=== PATIENT | female | born 1980 | race Caucasian/White ===

== ENCOUNTER 2018-02-03 10:47 | Emergency (ER) | payer BC ==
[~2018-02-03 10:47] MED LIST: IBUP600 PO; OXYC1SOL5 PO; PERI8.6T PO; PRENTAB72 PO
--- NOTE | 2018-02-03 11:56 | PD ---
HPI Chief Complaint Joel Dia contractions Date Seen: February 03, 2018 Time Seen: 11:48 Travel History International Travel<30 Days: No Contact w/Intl Traveler<30Days: No Known Affected Area: No History of Present Illness HPI 37-year-old white female [address] Mccall for care and presents complaining of [place] Dia contractions, denies bleeding or leakage of fluid. heart tones are reactive for 24 weeks and there are no contractions noted on the monitor. 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 Alcohol Use: No Tobacco Use: No Substance Abuse: No Allergies-Medications (Allergen,Severity, Reaction): Coded Allergies: No Known Allergies (Verified , 07/14/12) Home Meds Active Scripts Oxycodone W/ Acetaminophen (Oxycodone/Acetaminophen 5-325 mg/5Ml) 1 Tab Tab, 1 TAB PO Q4H Y for PAIN SCALE 1 TO 4, #30 TAB 0 Refills Prov:Sergio Mccall MD 11/22/14 Sennosides-Docusate Sodium (Sary-Colace 8.6-50 mg) 1 Tab Tab, 2 TAB PO Q12H Y for CONSTIPATION, #20 TAB 0 Refills Prov:Alyssa Quinonez 11/21/14 Ibuprofen (Motrin 600 Mg Tab) 600 Mg Tab, 600 MG PO Q6H Y for CRAMPING, #30 TAB 0 Refills Prov:Alyssa Quinonez 11/21/14 Reported Medications Vit W/ Ferrous Fumara () Tab, 1 TAB PO DAILY 07/14/12 Review of Systems General / Constitutional: No: Fever, Weight Gain, Chills, Other Eyes: No: Diploplia, Blurred Vision, Visual changes, Pain, Photophobia HENT: No: Headaches, Vertigo, Lightheadedness Cardiovascular: No: Irregular Rhythm, Chest Pain or Discomfort, Palpitations, Tachycardia, Syncope, Varicosities, Edema, Cyanosis Respiratory: No: Cough, Short of Breath, Other Gastrointestinal: Abdominal Pain, No: Nausea, Vomiting, Diarrhea Genitourinary: No: Decreased Urinary Output, Oliguria Musculoskeletal: No: Limited ROM, Weakness, Cramping, Edema, Pain Skin: No Rash, No Itching, No Dryness, No Lumps, No Change in Pigmentation, No Change in Nails, No Alopecia, No Lesions Neurologic: No: Weakness, Dizziness, Syncope, Focal Abnormalities, Coordination Problem, Headache, Slurred Speech, Seizures Psychiatric: No: Depression, Suicidal Ideations, Homicidal Ideation Endocrine: No: Heat Intolerance, Cold Intolerance, Polydipsia, Polyuria, Other Physical Exam Narrative GENERAL: Well-nourished, well-developed patient. SKIN: Warm and dry. HEAD: Normocephalic and atraumatic. EYES: No scleral icterus. No injection or drainage. ENT: No nasal drainage noted. Mucous membranes pink. Airway patent. NECK: Supple, trachea midline. No JVD. CARDIOVASCULAR: Regular rate and rhythm without murmurs, gallops, or rubs. RESPIRATORY: Breath sounds equal bilaterally. No accessory muscle use. BREASTS: Bilateral exam showed no masses , no retractions, no nipple discharge. ABDOMEN/GI: Abdomen soft, non-tender, bowel sounds present, no rebound, no guarding Gravid to [-24] weeks size Fundal Height: [-24] GENITOURINARY: External Genitalia: intact and normal in appearance BUS glands: [-] Cervix: [-post] Dilatation: [0-] Effacement: [0-] Station: [-3] Membranes: [intact ] Uterine Contractions: [none seen-] FHT's: Category: [1-] Baseline: [133-] Reactive: [R-] Variability: [mod-] Decels: [-none] EXTREMITIES: No cyanosis or edema. BACK: Nontender without obvious deformity. No CVA tenderness. NEUROLOGICAL: Awake and alert. Motor and sensory grossly within normal limits. Five out of 5 muscle strength in all muscle groups. Normal speech. Data Data Labs UA on OB ED is negative MDM Interpretation(s) 37-year-old white female at 24 weeks PCS who presents complaining of [place] Dia contractions. Denies bleeding or leakage of fluid. heart tones within normal limits and no contractions seen. Cervix is closed thick and high Plan Plan to discharge home to bedrest, Tylenol, p.o. hydration, heating pad or hot bath for symptom relief follow-up with Dr. Mccall for further issues Diagnosis Diagnosis: Primary Impression: [place] Dia contractions Additional Impression: 24 weeks gestation of Disposition: 01 DISCHARGE HOME Condition: Stable Departure Forms: Tests/Procedures, Work Release Enter return to work date: February 05, 2018 Special Instructions: Please allow patient to be off for 48 hours for bedrest due to premature uterine contractions Dario Goldsmith II, MD February 03, 2018 11:56
== END 2018-02-03 12:10 | disposition home or self-care (01) ==
LOC: HOBED 10:47
DX: O47.02 False labor before 37 completed weeks of gestation, second trimester (principal); Z3A.24 24 weeks gestation of pregnancy
CPT/HCPCS: 99284

== ENCOUNTER 2018-05-05 16:15 | Inpatient (IN) ==
--- NOTE | 2018-05-05 16:56 | ED ---
History of Present Illness Primary Care Physician: Tasia Matthew MD History of Present Illness: cc: contractions 37-year-old 002, IUP at 37.5 care complicated by history of previous delivery, desires permanent surgical sterilization, advanced maternal age The patient presents complaining of painful contractions that started at noon today. She reports they have increased in frequency and intensity to now every 3-6 minutes. There have been no alleviating for factors or attempted treatments. She denies any leaking of fluid or vaginal bleeding. She reports good movement. 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 Denies history of STDs or abnormal Paps PMH: Denies PSH: Tonsillectomy, delivery FH: Asthma, diabetes, CAD, [place], CVA, [place] Meds: As per EMR Allergy: NKDA SH: Denies drugs, alcohol, tobacco Review of Systems All other systems reviewed negative except as stated in HPI Medications and Allergies Allergies Allergy/AdvReac Type Severity Reaction Status Date / Time No Known Allergies Allergy unknown Uncoded 05/05/18 16:50 Home Medications Medication Instructions Recorded Confirmed Type [id number] acid 1 tab PO DAILY 05/05/18 05/05/18 History [PreNata] Exam Vital signs: Vital Signs 05/05/18 16:32 05/05/18 16:33 Temperature 98.0 F Pulse Rate 99 H Respiratory Rate 20 Blood Pressure 130/88 Narrative: GENERAL: Well-nourished, well-developed patient. SKIN: Warm and dry. HEAD: Normocephalic and atraumatic. EYES: No scleral icterus. No injection or drainage. ENT: No nasal drainage noted. Mucous membranes pink. Airway patent. NECK: Supple, trachea midline. No JVD. CARDIOVASCULAR: Regular rate and rhythm without murmurs, gallops, or rubs. RESPIRATORY: Breath sounds equal bilaterally. No accessory muscle use. BREASTS: Deferred ABDOMEN/GI: Abdomen soft, non-tender, bowel sounds present, no rebound, no guarding Gravid GENITOURINARY: External Genitalia: intact and normal in appearance, normal EGBUS, no cervical or vaginal masses, grossly normal rugae, physiologic discharge, SVE 1/ 50/-2. No significant cervical change with prolonged observation. FHT's: heart tones are in the 120s with moderate long-term variability, good accelerations, no decelerations noted. This is a reactive NST and category 1 heart rate tracing EXTREMITIES: No cyanosis or edema. BACK: Nontender without obvious deformity. NEUROLOGICAL/psychiatric: Awake and alert. Oriented 3. Motor and sensory grossly within normal limits. Five out of 5 muscle strength in all muscle groups. Normal speech. Normal memory/affect. Grossly normal range of motion. Results - Labs CBC & Chem 7: 05/05/18 19:25 Assessment and Plan - Plan Assessment/plan: 1. IUP at 37.5 2. Contractions at term: no evidence of active labor, patient may be in latent labor as contractions have increased in intensity and frequency and not decreased with IV hydration. There is no evidence of active labor. Discussed with Dr. Fung who spoke with patient and offered discharge home vs overnight observation. The patient will be admitted to Dr. Fung for overnight observation. 3. History of previous delivery: Patient desires a repeat delivery and is scheduled for next week, will undergo repeat if enters active labor 4. Patient desires permanent surgical sterilization 5. Advanced maternal age 6. well-being: Reassuring testing with reactive NST and category 1 heart rate tracing Discharge Plan - Discharge Condition Condition: Stable - Physicians Team Primary Care Provider: Tasia Matthew Attending Provider: Sergio Mccall - Rxs /Orders / Referrals /Forms Prescriptions: No Action [id number] acid [PreNata] 29 mg iron- 1 mg Tablet,Chewable 1 tab PO DAILY Referrals: Tasia Matthew MD [Primary Care Provider] - See Instructions
--- NOTE | 2018-05-05 22:15 | P.OBGPN ---
Update note 37-year-old , IUP at 37.5 by 9w US ([place]OV[place] 05/21/18) who presented this afternoon with complaints of contractions. She is received her liter of fluids , her cervix was 1 cm / 70% / -2 on arrival, has had no change since that time on repeat check. However has continued to contract painfully. care complicated by history of previous delivery, desires permanent surgical sterilization, advanced maternal age. plan was for repeat next week : /-3. FHTs: 130-140, moderate variability, no decles, acerations present [place]: contractions q 3-5 min A/P 1 IUP: may be off monitor and nursing to assess patient and placed back on monitor if allen painfully. 2. Contractions/late labor?: Patient has continued to contract regularly, no cervical loom changer the span of approximately 6 hours, most recent check by myself showed no change from previous. Discussed options with patient of observation in the hospital with pain control, and/or tocolysis for symptomatic improvement, versus discharge home with precautions the patient may return if worsening or persistent pain. Patient desires to stay, will place in observation, Tylenol as needed for pain. Will reassess tomorrow morning if making change at that time or before then we will proceed with . Allow to eat now n.p.o. at midnight. - CBC, UA pending. 3. History of : Desires repeat, originally scheduled for next week, desires sterilization as well. 4. AMA: AU WNL, NIPS Neg, XY.
[2018-05-05 23:06] LABS: Baso # (Auto) 0.1 th/mm3 (0.0-0.2); Baso % (Auto) 0.4 % (0.0-2.0); Eos # (Auto) 0.1 th/mm3 (0.0-0.4); Eos % (Auto) 0.4 % (0.0-4.0); Hematocrit 40.3 % (35.0-46.0); Hemoglobin 13.7 gm/dL (11.6-15.3); Lymph % (Auto) 14.5 % (9.0-44.0); Mean Corpuscular Hemoglobin 30.9 pg (27.0-34.0); Mean Corpuscular Volume 90.8 fL (80.0-100.0); Mean Platelet Volume 9.8 fL (7.0-11.0); Mono # (Auto) 0.9 th/mm3 (0.0-0.9); Mono % (Auto) 6.4 % (0.0-8.0); Neut # (Auto) 10.8 th/mm3 (1.8-7.7); Neut % (Auto) 78.3 % (16.0-70.0); Platelet Count 242 th/mm3 (150-450); Red Blood Count 4.43 mil/mm3 (4.00-5.30); Red Cell Distribution Width 12.9 % (11.6-17.2); White Blood Count 13.8 th/mm3 (4.0-11.0)
[2018-05-05 23:52] LABS: Amphetamine Urine With Conf Neg (Neg); Benzodiazepine Urine With Conf Neg (Neg)
[2018-05-05 23:53] LABS: Bacteria,Urine Rare /hpf; Bilirubin,Urine Negative (Negative); Clarity,Urine Clear (Clear); Color,Urine Straw (Yellw/Straw); Glucose,Urine (UA) Negative (Negative); Leukocyte Esterase,Urine Negative (Negative); Mucus,Urine Few /lpf (Occasional); Nitrite,Urine Negative (Negative); Specific Gravity,Urine 1.004 (1.002-1.035); Squamous Epithelial Cell,Urine 2 /hpf (0-5)
[2018-05-06] MEDS: Acetaminophen 325 MG Tablet PO PRN ×3 (04:46→20:47)
[2018-05-06] MEDS ORDERED: Sod Chloride 0.9% Inj 1,000 ML IV.CONT PRN (08:21)
[2018-05-06] MEDS ORDERED: Sodium Chlor 0.9% Inj 500 ML IV.SIG PRN (08:21)
[2018-05-06] MEDS ORDERED: Oxytocin 30 Units/500ml Premix 30 UNITS/500 ML BAG IV.SIG ONE ×2 (08:21→08:42)
[2018-05-06] MEDS ORDERED: Morphine Sulfate PF Inj 5 MG/10 ML Ampul ONE (08:21)
[2018-05-06] MEDS ORDERED: Naloxone Inj 0.4 MG/ML Vial IV.PUSH PRN ×2 (08:21→09:02)
[2018-05-06] MEDS ORDERED: fentaNYL Citrate Inj 100 MCG/2 ML Ampul IV.PUSH PRN ×2 (08:21)
[2018-05-06] MEDS ORDERED: Citric Acid/Sodium Citrate Liq 30 ML UDC PO SCH ×2 (08:30)
--- NOTE | 2018-05-06 08:37 | P.HPOB ---
History of Present Illness Primary Care Physician: Tasia Matthew MD History of Present Illness: cc: contractions 37-year-old 002, IUP at 37.5 care complicated by history of previous delivery, desires permanent surgical sterilization, advanced maternal age The patient presents complaining of painful contractions that started at noon today. She reports they have increased in frequency and intensity to now every 3-6 minutes. There have been no alleviating for factors or attempted treatments. She denies any leaking of fluid or vaginal bleeding. She reports good movement. 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 Denies history of STDs or abnormal Paps PMH: Denies PSH: Tonsillectomy, delivery FH: Asthma, diabetes, CAD, [place], CVA, [place] Meds: As per EMR Allergy: NKDA SH: Denies drugs, alcohol, tobacco - Inpatient Certification I certify that the inpatient services were ordered in accordance with Medicare regulations governing the order. This includes certification that hospital inpatient services are reasonable and necessary and in the case of services not specified as inpatient-only under 42 CFR 419.22(n), that they are appropriately provided as inpatient services in accordance to with the 2-midnight benchmark under 43 CFR 412.3(e) Estimated Total Length of Stay (Days): 3 Plans for Post Hospital Care: Home Review of Systems Gastrointestinal: Reports abdominal pain (uterine contractions 3-6 minutes) PMFSH - Tobacco History Second Hand Smoke Exposure: No Tobacco Use In Past 30 Days: No Smoking Status: Never smoker - Alcohol History How Often Do You Have a Drink Containing Alcohol: Never - Substance Use History Substance History: No History of Abuse - Travel History History of Recent Travel: No Recent Travel in the [place] Within the Last 8 Weeks: No Recent Travel Out of the Country Within the Last 8 Weeks: No Medications and Allergies Active Medications: Active Medications Acetaminophen (Tylenol) 650 mg PO Q4H PRN PRN Reason: PAIN SCALE 1 TO 5 Last Admin: 05/06/18 04:46 Dose: 650 mg Citric Acid/Sodium Citrate (Sodium Citrate/Citric Acid Liq) 30 ml PO METAL HANDLER NAVEED Stop: 05/10/18 08:29 Citric Acid/Sodium Citrate (Sodium Citrate/Citric Acid Liq) 30 ml PO METAL HANDLER NAVEED Stop: 05/10/18 08:29 Fentanyl Citrate (Fentanyl Inj) 50 mcg IV.PUSH Q1H PRN PRN Reason: Pain Scale 3 - 5 Fentanyl Citrate (Fentanyl Inj) 100 mcg IV.PUSH Q1H PRN PRN Reason: PAIN SCALE 6 TO 10 Lactated Ringer's (Lr 1000 Ml Inj) 1,000 mls @ 999 mls/hr IV.CONT .Q1H1M [facility] Last Admin: 05/06/18 04:49 Dose: Not Given Cefazolin Sodium 1,000 mg/ (Sodium Chloride) 100 mls @ 100 mls/hr IV.SIG METAL HANDLER [facility] Stop: 05/10/18 08:59 Lactated Ringer's (Lr 1000 Ml Inj) 1,000 mls @ 2,000 mls/hr IV.SIG .Q30M ONE Stop: 05/06/18 08:50 Lactated Ringer's (Lr 1000 Ml Inj) 1,000 mls @ 150 mls/hr IV.CONT .Q6H40M [facility] Lactated Ringer's (Lr 1000 Ml Inj) 1,000 mls @ 125 mls/hr IV.CONT .Q8H [facility] Lactated Ringer's (Lr 1000 Ml Inj) 1,000 mls @ 3,000 mls/hr IV.SIG UNSCH PRN PRN Reason: compromise or epidural Sodium Chloride (Ns Inj) 1,000 mls @ 100 mls/hr IV.CONT .Q10H PRN PRN Reason: SEE LABEL COMMENTS Oxytocin (Pitocin 30 Units/Ns 500 Ml Premix) 30 units in 500 mls @ 999 mls/hr IV.SIG BOLUS ONE Stop: 05/06/18 08:51 Sodium Chloride (Ns Inj) 500 mls @ 1,000 mls/hr IV.SIG UNSCH PRN PRN Reason: SEE LABEL COMMENTS Lidocaine HCl (Xylocaine 1% Inj) 0.1 ml I-DERMAL PRN PRN PRN Reason: For IV start Stop: 05/09/18 08:20 Lidocaine HCl (Xylocaine 1% Inj) 10 ml INFILTRATN PRN PRN PRN Reason: For episiotomy repair Stop: 05/08/18 08:20 Mineral Oil (Muri-Lube Oil) 10 ml TOPICAL PRN PRN PRN Reason: PRN perineal massage Naloxone HCl (Narcan Inj) 0.1 mg IV.PUSH Q2M PRN PRN Reason: for opiate reversal Sodium Chloride (Ns Flush) 2 ml IV.FLUSH BID NAVEED Sodium Chloride (Ns Flush) 2 ml IV.FLUSH PRN PRN PRN Reason: FLUSH AFTER USING IV ACCESS Allergies Allergy/AdvReac Type Severity Reaction Status Date / Time No Known Allergies Allergy unknown Uncoded 05/05/18 16:50 Home Medications Medication Instructions Recorded Confirmed Type [id number] acid 1 tab PO DAILY 05/05/18 05/05/18 History [PreNata] Exam Vital signs: Vital Signs 05/05/18 16:32 05/05/18 16:33 05/05/18 19:15 Temperature 98.0 F Pulse Rate 99 H Respiratory Rate 20 18 Blood Pressure 130/88 05/05/18 21:00 05/05/18 22:30 05/06/18 04:00 Temperature Pulse Rate Respiratory Rate 18 18 18 Blood Pressure 05/06/18 05:00 05/06/18 06:52 05/06/18 07:32 Temperature 97.9 F Pulse Rate 78 Respiratory Rate 18 18 18 Blood Pressure 122/74 Intake & Output 05/05/18 05/06/18 05/06/18 18:59 06:59 18:59 Weight 63.957 kg - Constitutional no acute distress - Routine HEENT Exam Head: Present: normocephalic Eye: Present: EOMI, PERRL, normal accommodation - Routine Neck Exam Present: supple, full ROM. Absent: lymphadenopathy - Routine Chest/Breast/Axilla Exam Chest wall: Absent: tenderness - Routine Respiratory Exam Absent: accessory muscle use, decreased breath sounds, rales - Routine Cardiovascular Exam Present: RRR. Absent: murmur - Routine Abdominal Exam Present: soft, normoactive bowel sounds. Absent: tenderness - Routine Exam External: Present: normal urethra appearance. Absent: erythema, swelling, tenderness Groin: Absent: tenderness Perineum Description: Intact Comments: Cervix 50/1/-2/vertex - Routine Extremities Exam Present: full ROM, pulses intact. Absent: cyanosis, clubbing, edema, tenderness , joint swelling - Routine Skin Exam Present: intact. Absent: cyanosis, erythema - Routine Neurological Exam Present: alert, oriented X3, normal reflexes Results - Labs CBC & Chem 7: 05/05/18 19:25 Labs: Laboratory Results - last 24 hr 05/05/18 05/05/18 05/05/18 16:30 16:30 19:25 WBC 13.8 H RBC 4.43 Hgb 13.7 Hct 40.3 MCV 90.8 MCH 30.9 MCHC 34.0 RDW 12.9 Plt Count 242 MPV 9.8 Neut % (Auto) 78.3 H Lymph % (Auto) 14.5 [place] % (Auto) 6.4 Eos % (Auto) 0.4 Baso % (Auto) 0.4 Neut # (Auto) 10.8 H Lymph # (Auto) 2.0 [place] # (Auto) 0.9 Eos # (Auto) 0.1 Baso # (Auto) 0.1 WBC Differential . Differential Comment Auto diff final Urine Color Straw Urine Clarity Clear Urine pH 6.0 Ur Specific [place] 1.004 Urine Protein Negative Urine Glucose (UA) Negative Urine Ketones Negative Urine Occult Blood Negative Urine Nitrate Negative Urine Bilirubin Negative Urine Urobilinogen Less than 2 Ur Leukocyte Esterase Negative Urine RBC Less than 1 Urine WBC Less than 1 Ur Squamous Epith Cells 2 Urine Bacteria Rare H Urine Mucus Few H Micro UA Comment Culture not ind Urine Culture Comments Culture not ind Urine Opiates Screen Neg Ur Barbiturates Screen Neg Ur Amphetamine Screen Neg U Benzodiazepines Scrn Neg Urine Cocaine Screen Neg U Cannabinoids Screen Neg Blood Type Blood Type Recheck Antibody Screen 05/05/18 19:25 WBC RBC Hgb Hct MCV MCH MCHC RDW Plt Count MPV Neut % (Auto) Lymph % (Auto) [place] % (Auto) Eos % (Auto) Baso % (Auto) Neut # (Auto) Lymph # (Auto) [place] # (Auto) Eos # (Auto) Baso # (Auto) WBC Differential Differential Comment Urine Color Urine Clarity Urine pH Ur Specific [place] Urine Protein Urine Glucose (UA) Urine Ketones Urine Occult Blood Urine Nitrate Urine Bilirubin Urine Urobilinogen Ur Leukocyte Esterase Urine RBC Urine WBC Ur Squamous Epith Cells Urine Bacteria Urine Mucus Micro UA Comment Urine Culture Comments Urine Opiates Screen Ur Barbiturates Screen Ur Amphetamine Screen U Benzodiazepines Scrn Urine Cocaine Screen U Cannabinoids Screen Blood Type A Positive Blood Type Recheck Not needed Antibody Screen Negative Caprini VTE Risk Assessment Caprini VTE Risk Assessment: No/Low Risk (score <= 1) Caprini Risk Assessment Model: Point Value = 1 Point Value = 2 Point Value = 3 Point Value = 5 Age 41-60 Minor surgery BMI > 25 kg/m2 Swollen legs Varicose veins or History of unexplained or recurrent spontaneous Oral contraceptives or hormone replacement Sepsis (< 1 month) Serious lung disease, including pneumonia (< 1 month) Abnormal pulmonary function Acute myocardial infarction Congestive heart failure (< 1 month) History of inflammatory bowel disease Medical patient at bed rest Age 61-74 Arthroscopic surgery Major open surgery (> 45 min) Laparoscopic surgery (> 45 min) Malignancy Confined to bed (> 72 hours) Immobilizing plaster cast Central venous access Age >= 75 History of VTE Family history of VTE Factor V Leiden Prothrombin [id number] Lupus anticoagulant Anticardiolipin antibodies Elevated serum homocysteine Heparin-induced thrombocytopenia Other congenital or acquired thrombophilia Stroke (< 1 month) Elective arthroplasty Hip, pelvis, or leg fracture Acute spinal cord injury (< 1 month) Prophylaxis Regimen: Total Risk Factor Score Risk Level Prophylaxis Regimen 0-1 Low Early ambulation 2 Moderate Order ONE of the following: *Sequential Compression Device (SCD) *Heparin 5000 units SQ BID 3-4 Higher Order ONE of the following medications: *Heparin 5000 units SQ TID *Enoxaparin/Lovenox 40 mg SQ daily (WT < 150 kg, CrCl > 30 mL/min) *Enoxaparin/Lovenox 30 mg SQ daily (WT < 150 kg, CrCl > 10-29 mL/min) *Enoxaparin/Lovenox 30 mg SQ BID (WT < 150 kg, CrCl > 30 mL/min) AND/OR *Sequential Compression Device (SCD) 5 or more Highest Order ONE of the following medications: *Heparin 5000 units SQ TID (Preferred with Epidurals) *Enoxaparin/Lovenox 40 mg SQ daily (WT < 150 kg, CrCl > 30 mL/min) *Enoxaparin/Lovenox 30 mg SQ daily (WT < 150 kg, CrCl > 10-29 mL/min) *Enoxaparin/Lovenox 30 mg SQ BID (WT < 150 kg, CrCl > 30 mL/min) AND *Sequential Compression Device (SCD) Assessment and Plan - Plan Assessment/plan: 1. IUP at 37.5 2. Contractions at term: no evidence of active labor, patient may be in latent labor as contractions have increased in intensity and frequency and not decreased with IV hydration. There is no evidence of active labor. Discussed with Dr. Fung who spoke with patient and offered discharge home vs overnight observation. The patient will be admitted to Dr. Fung for overnight observation. 3. History of previous delivery: Patient desires a repeat delivery and is scheduled for next week, will undergo repeat if enters active labor 4. Patient desires permanent surgical sterilization 5. Advanced maternal age 6. well-being: Reassuring testing with reactive NST and category 1 heart rate tracing Update, 05/06/2018: 37 6/7 weeks continued regular UCs,Painful ,Plan repeat cd with BTL, Stable. Routine pre-op orders,Ancef
--- NOTE | 2018-05-06 10:13 | P.OBDELI ---
Procedure Note Performed by: Sergio Mccall MD Procedure: Repeat Low Transverse Section (with tubal ligation) Indication for Delivery: Desired elective repeat Informed Consent Obtained: For anesthesia, For procedure Confirmed Correct: Patient, Procedure, Site, Time-out taken Anesthesia: Spinal Medication Prior to Procedure: As documented in eMAR Monitoring During Procedure: Blood pressure monitoring, lighting adviser, doppler, Pulse oximetry Urinary Catheter: Inserted using sterile technique, To dependent drainage Sterile Preparation: Duraprep, In usual fashion Position: Supine with wedge to right side, Supine with safety belt applied - Operative Features Skin Incision: Pfannenstiel Uterine Incision: Low transverse w/knife / scissors Membranes Ruptured: Artificially, Appearance of fluid (light meconium) Presentation: Occiput anterior Status of : Viable, Cord blood, Umbilical cord, Nursery present Placenta Delivered: Intact Medications: Antibiotics, Oxytocin Estimated blood loss (mL): 650 Procedure Tolerated: Well Maternal Condition: Stable Baby Condition: Stable - : Male Infant Delivery Date: 05/06/18 Weight: 3.912 kg score (1 min): 9 score (5 min): 9
--- NOTE | 2018-05-06 10:40 | MP ---
cc: Sergio Mccall MD DATE OF OPERATION: 05/06/2018 PREOPERATIVE DIAGNOSES: Term intrauterine . History of previous section that is scheduled for elective, presents in active labor. PROCEDURE: Repeat low transverse section, tubal ligation for elective sterilization, delivery of viable male . POSTOPERATIVE DIAGNOSES: Term intrauterine . History of previous section that is scheduled for elective, presents in active labor. SURGEON: Sergio Mccall MD. ANESTHESIA: Spinal. ESTIMATED BLOOD LOSS: 650 mL. DRAINS: Lopez to gravity. OPERATIVE FINDINGS: Male infant delivered LOT position, use of the vacuum extractor x 1. The amniotic fluid was slightly green with light meconium. The umbilical cord was 3 vessels, intact. Baby's Apgars were 9 at one minute and 9 at five. INDICATIONS FOR PROCEDURE: The patient had been scheduled for an elective repeat section with a tubal ligation for 05/15. She presented in labor with uterine contractions every 3-7 minutes on the evening of 05/05/2018. Uterine contractions persisted with increasing intensity and frequency. The patient was stable. heart rate and tracing were category 1. Given the continued active uterine contractions, recommendation was to proceed with delivery as scheduled. The patient received Ancef 2 grams prophylactically. PROCEDURE DESCRIPTION: The patient was taken to the operating room in stable condition and underwent spinal anesthetic without complication with good result. She was then prepped and draped. Lopez was inserted by sterile technique and she had sequentials placed on lower extremities for VTE prophylaxis. Safety belt was secured and a lateral roll was placed on the patient's right side. A timeout was conducted and agreed by all present in the room. After the patient was adequately prepped and draped, a Pfannenstiel incision was utilized. Previous scar was noted. This was carried through the skin down through the subcutaneous layer to the fascia, which was identified and scored laterally, dissecting away from the rectus muscle, allowing separation of the rectus muscle in the midline and then opening the peritoneum in a sharp fashion. A small scar was noted over the peritoneum in the lower uterine segment, which was taken down easily by sharp dissection. This allowed entry into the uterine cavity by transverse incision in the lower uterine segment without difficulty. Fluid was identified. It was clear with meconium staining and the was delivered through the incision with the aid of a vacuum extractor with 1 pull, uncomplicated. The was delivered in total. Delayed cord clamping was done for 45 seconds. The was then taken to the [place] by the nursery staff after ligation of the cord. Cord sample was obtained for typing. Placenta was removed intact with trailing membranes. The uterus was exteriorized. The uterine incision was closed with a double layer, first was a running locking suture of #0 Monocryl, followed by a second imbricating suture of #0 Monocryl with good result. Fallopian tubes were elevated. The mesentery was opened using the Bovie and then 2-0 plain suture was placed proximally and distally through the open mesentery, allowing removal of the distal ampullary portion of each tube along with the mid isthmic portion of the tube. Tubes were labeled appropriately right and left. Any active bleeding was cauterized or sutured with interrupted suture of 2-0 plain suture. Hemostasis was confirmed on both sides. No hematoma. The uterus was then returned to its normal anatomic position of the pelvis. Irrigation of the pelvis was accomplished, drying, all free blood and reassuring any clots. A piece of Interceed was then placed over the lower uterine segment to prevent postoperative adhesions. Again, good hemostasis was noted. A full count was made and correct. The peritoneal layer was then closed with a running suture of 2-0 Monocryl and then reapproximated the muscle with interrupted mattress suture of 2-0 Monocryl. The fascia was then closed with #0 Vicryl in a simple running fashion. The subcutaneous space was closed with a running suture of 2-0 Monocryl and then a 4-0 Stratafix suture was used to close the skin in a subcuticular fashion. Steri-Strips were applied. Dressing was applied. The final count was correct. The patient was stable. Infant was doing well at the bedside with nursery present. At the completion of the case, final counts were correct. The patient was taken to the recovery room on room air. Sergio Mccall MD SJ[facility]aughn/loly , 10:19 AM , 10:29 AM
[2018-05-06] MEDS ORDERED: Phenylephrine/NS 1000 MCG/10ML Syringe IV.PUSH ONE (12:00)
[2018-05-06] MEDS ORDERED: Ketorolac Inj 30 MG/ML (IVP) Vial IV.PUSH ONE (12:00)
[2018-05-06] MEDS ORDERED: Oxytocin 30 Units/500ml Premix 30 UNITS/500 ML BAG IV.SIG PRN (13:43)
[2018-05-06] MEDS: Ibuprofen 600 MG Tablet PO PRN (17:32)
[2018-05-06] MEDS: Senna/Docusate Sodium 8.6/50 MG Tablet PO PRN (20:46)
[2018-05-07] MEDS: Acetaminophen 325 MG Tablet PO PRN ×4 (01:34→17:17)
[2018-05-07] MEDS: Ibuprofen 600 MG Tablet PO PRN ×4 (01:34→23:36)
[2018-05-07 05:58] LABS: Hematocrit 36.1 % (35.0-46.0); Hemoglobin 12.2 gm/dL (11.6-15.3); Mean Corpuscular HGB Conc 33.9 % (32.0-36.0); Mean Corpuscular Volume 91.3 fL (80.0-100.0); Mean Platelet Volume 8.8 fL (7.0-11.0); Platelet Count 187 th/mm3 (150-450); Red Blood Count 3.95 mil/mm3 (4.00-5.30); Red Cell Distribution Width 12.8 % (11.6-17.2); White Blood Count 15.7 th/mm3 (4.0-11.0)
--- NOTE | 2018-05-07 07:52 | P.PNOB ---
Subjective Post day: 1 Interval history: Pt doing well. shah removed yesterday, able to void. Shlomo po, ambulating. Pain well controlled. Objective Vital Signs/I&O: Vital Signs 05/06/18 10:20 05/06/18 10:32 05/06/18 10:49 Temperature 98.4 F Pulse Rate 70 69 65 Respiratory Rate 16 16 16 Blood Pressure 126/82 141/78 H 125/75 05/06/18 10:57 05/06/18 11:03 05/06/18 11:45 Temperature 97.9 F 98.2 F Pulse Rate 73 75 Respiratory Rate 16 18 Blood Pressure 123/69 121/82 Result Diagrams: 05/07/18 05:45 Objective Remarks: GENERAL: Well-nourished, well-developed patient. CARDIOVASCULAR: Regular rate and rhythm without murmurs, gallops, or rubs. RESPIRATORY: Breath sounds equal bilaterally. No accessory muscle use. ABDOMEN/GI: Abdomen soft, non-tender. Fundus: Firm, non-tender at umbilicus. incision c/d/i GENITOURINARY: Light to moderate bleeding. EXTREMITIES: No cyanosis or edema, non-tender, without signs of DVT. Medications and IVs: Active Medications Acetaminophen (Tylenol) 650 mg PO Q4H PRN PRN Reason: PAIN SCALE 1 TO 5 Last Admin: 05/07/18 05:21 Dose: 650 mg Diphenhydramine HCl (Benadryl) 50 mg PO Q6H PRN PRN Reason: MILD TO MODERATE ITCHING Stop: 05/07/18 09:01 Diphtheria/Pertussis/Tetanus Vacc (Boostrix Vaccine Inj) 0.5 ml IM .ONCE ONE Stop: 05/07/18 16:01 Ibuprofen (Motrin) 600 mg PO Q6HR PRN PRN Reason: cramping Last Admin: 05/07/18 01:34 Dose: 600 mg Ketorolac Tromethamine (Toradol Inj) 30 mg IM Q6H PRN PRN Reason: SEE LABEL COMMENTS Stop: 05/10/18 08:41 Measles/Mumps/Rubella Vaccine Live (M-M-R Ii Vaccine Inj) 0.5 ml SQ .ONCE ONE Stop: 05/07/18 16:01 Miscellaneous Information ([facility] [place] [facility]) 1 each OTHER UNSCH PRN PRN Reason: SEE LABEL COMMENTS Stop: 05/07/18 09:01 Miscellaneous Information ([facility] [place] [facility]) 1 each OTHER UNSCH PRN PRN Reason: SEE LABEL COMMENTS Stop: 05/07/18 09:01 Oxycodone/Acetaminophen (Percocet 5/325 Mg) 2 tab PO Q4H PRN PRN Reason: PAIN SCALE 6 TO 10 Oxycodone/Acetaminophen (Percocet 5/325 Mg) 1 tab PO Q4H PRN PRN Reason: PAIN SCALE 3 TO 5 Senna/Docusate Sodium (Sary-Colace) 2 tab PO Q12H PRN PRN Reason: CONSTIPATION Last Admin: 05/06/18 20:46 Dose: 2 tab Assessment and Plan - Plan PPD 1 s/p RLTCD and btl cont routine postop care br feeding support doing well; having BS measured and supplementing w formula for low accuchecks Discharge Planning: pod 2-3
--- NOTE | 2018-05-07 10:03 | P.OBGPN ---
looked pt up in PDMP, reviewed report
[2018-05-07] MEDS: Senna/Docusate Sodium 8.6/50 MG Tablet PO PRN ×2 (10:25→23:36)
[2018-05-07] MEDS ORDERED: Measles/Mumps/Rubella Vaccine Inj 0.5 ML Vial SQ ONE (16:00)
[2018-05-07] MEDS ORDERED: Diphtheria/Tetanus/Pertussis Vaccine Inj 0.5 ML Syringe IM ONE (16:00)
[2018-05-07] MEDS ORDERED: Polyethylene Glycol 3350 17 GM Packet PO PRN (17:21)
--- NOTE | 2018-05-08 08:07 | P.PNOB ---
Subjective Post op day: 2 Interval history: Doing well, pain controlled, ambulating without difficulty, voiding spontaneously, vaginal bleeding less than menses. Objective Result Diagrams: 05/07/18 05:45 Objective Remarks: GENERAL: Well-nourished, well-developed patient. CARDIOVASCULAR: Regular rate and rhythm without murmurs, gallops, or rubs. RESPIRATORY: Breath sounds equal bilaterally. No accessory muscle use. ABDOMEN/GI: Abdomen soft, non-tender, bowel sounds present. Incision: Clean, dry and intact. Fundus: Firm, non-tender at umbilicus. GENITOURINARY: Light to moderate bleeding. EXTREMITIES: No cyanosis or edema, non-tender, without signs of DVT. Medications and IVs: Active Medications Acetaminophen (Tylenol) 650 mg PO Q4H PRN PRN Reason: PAIN SCALE 1 TO 5 Last Admin: 05/07/18 17:17 Dose: 650 mg Ibuprofen (Motrin) 600 mg PO Q6HR PRN PRN Reason: cramping Last Admin: 05/07/18 23:36 Dose: 600 mg Ketorolac Tromethamine (Toradol Inj) 30 mg IM Q6H PRN PRN Reason: SEE LABEL COMMENTS Stop: 05/10/18 08:41 Oxycodone/Acetaminophen (Percocet 5/325 Mg) 2 tab PO Q4H PRN PRN Reason: PAIN SCALE 6 TO 10 Oxycodone/Acetaminophen (Percocet 5/325 Mg) 1 tab PO Q4H PRN PRN Reason: PAIN SCALE 3 TO 5 Last Admin: 05/08/18 06:05 Dose: 1 tab Senna/Docusate Sodium (Sary-Colace) 2 tab PO Q12H PRN PRN Reason: CONSTIPATION Last Admin: 05/07/18 23:36 Dose: 2 tab Assessment and Plan - Plan 37-year-old 003 status post repeat low transverse and bilateral tubal ligation at 37 weeks due to labor and history of 1. Postoperative day #1: Afebrile, vital signs stable, anticipate discharge home tomorrow. Discussed precautions, expectations and follow-up. -Male , she plans to have him circumcised as an outpatient next Friday in our office
--- NOTE | 2018-05-08 08:09 | P.DS ---
Date of admission: 05/05/18 22:39 Primary care physician: Tasia Matthew MD Brief History from admission: 29-year-old G3 now P3 003 who presented to triage with contractions, her cervix slowly changed was noted to be in labor, she was originally a scheduled and given her desire for repeat she underwent a repeat low transver se and bilateral tubal ligation at 37 weeks. On postoperative day #3 she was meeting all her milestones and was discharged home. DS: Medications - Discharge Medications Prescriptions: ibuprofen [Motrin IB] 600 mg PO TID-QID PRN #30 tab PRN Reason: Pain oxycodone-acetaminophen [Percocet] 1 tab PO Q4-6H PRN #15 tab PRN Reason: Pain DS: Summary Hospital Course: See brief history - Time Spent with Patient Total time spent providing and/or coordinating discharge services: Less than 30 minutes Results Procedures completed during hospitalization: Repeat low transverse and bilateral tubal ligation Discharge Plan - Discharge Disposition Patient Disposition: 01 Discharge Home - Discharge Condition Condition: Stable - Discharge Order Discharge Orders: Discharge Order (Routine); Ordered 05/06/18 Ordered By: Sergio Mccall [employer] CLERK Clear for Discharge (Routine); Ordered 05/08/18 Ordered By: Sergio Mccall - Discharge Details Anticipated Discharge Date: 05/08/18 - Physicians Team Primary Care Provider: Tasia Matthew Attending Provider: Sergio Mccall
[2018-05-08] MEDS: Senna/Docusate Sodium 8.6/50 MG Tablet PO PRN ×2 (10:47→22:45)
[2018-05-08] MEDS: Ibuprofen 600 MG Tablet PO PRN ×2 (12:27→22:46)
[2018-05-09] MEDS: Ibuprofen 600 MG Tablet PO PRN ×2 (04:46→11:07)
--- NOTE | 2018-05-09 07:47 | P.PNOB ---
Subjective Post day: 3 Interval history: Doing well, ready for discharge home. Objective Result Diagrams: 05/07/18 05:45 Objective Remarks: GENERAL: Well-nourished, well-developed patient. CARDIOVASCULAR: Regular rate and rhythm without murmurs, gallops, or rubs. RESPIRATORY: Breath sounds equal bilaterally. No accessory muscle use. ABDOMEN/GI: Abdomen soft, non-tender. Fundus: Firm, non-tender at umbilicus. Incision: Clean dry and intact GENITOURINARY: Light to moderate bleeding. EXTREMITIES: No cyanosis or edema, non-tender, without signs of DVT. Medications and IVs: Active Medications Acetaminophen (Tylenol) 650 mg PO Q4H PRN PRN Reason: PAIN SCALE 1 TO 5 Last Admin: 05/07/18 17:17 Dose: 650 mg Ibuprofen (Motrin) 600 mg PO Q6HR PRN PRN Reason: cramping Last Admin: 05/09/18 04:46 Dose: 600 mg Ketorolac Tromethamine (Toradol Inj) 30 mg IM Q6H PRN PRN Reason: SEE LABEL COMMENTS Stop: 05/10/18 08:41 Oxycodone/Acetaminophen (Percocet 5/325 Mg) 2 tab PO Q4H PRN PRN Reason: PAIN SCALE 6 TO 10 Oxycodone/Acetaminophen (Percocet 5/325 Mg) 1 tab PO Q4H PRN PRN Reason: PAIN SCALE 3 TO 5 Last Admin: 05/09/18 04:46 Dose: 1 tab Senna/Docusate Sodium (Sary-Colace) 2 tab PO Q12H PRN PRN Reason: CONSTIPATION Last Admin: 05/08/18 22:45 Dose: 2 tab Assessment and Plan - Plan 37-year-old 003 status post repeat low transverse and bilateral tubal ligation at 37 weeks due to labor and history of 1. Postoperative day 31: Doing well, anticipate discharge home today. -Male , she plans to have him circumcised as an outpatient next Friday in our office Discharge Planning: pod 2-3
[2018-05-09] MEDS: Senna/Docusate Sodium 8.6/50 MG Tablet PO PRN (11:07)
== END 2018-05-09 11:15 | disposition home or self-care (01) ==
LOC: HOBED 16:15 → H2E 16:15 → OBSVTOIN 22:39 → H1EA 05-06 11:26
PROVIDERS: ADMIT Obstetrics & Gynecology; ATTEND Obstetrics & Gynecology